=== PATIENT | female | born 1955 | race Caucasian/White ===

== ENCOUNTER → 2020-01-24 08:33 | Outpatient (CLI) | payer OTHER, SELFPAY ==
--- NOTE | ~2020-01-24 | XR_ITS ---
XR foot RT 2V DATE: 01/24/2020 08:48 INDICATION: Right foot pain TECHNIQUE: AP and lateral views COMPARISON: None FINDINGS: Moderate plantar calcaneal enthesopathy. Mild posterior calcaneal enthesopathy and mild dis guille Achilles tendon calcification. No fracture or dislocation, periosteal reaction or bone destruction. Mild joint space narrowing at th e first metatarsophalangeal joint. No erosive changes. IMPRESSION: Moderate plantar calcaneal enthesopathy Mild posterior calcaneal enthesopathy and mild distal Achilles tendon calcification Mild osteoarthritis at the first metatarsophalangeal joint Reviewed, dictated and finalized at location B. IMPRESSION: Moderate plantar calcaneal enthesopathy Mild posterior calcaneal enthesopathy and mild distal Achilles tendon calcifica tion Mild osteoarthritis at the first metatarsophalangeal joint
== END ==
PROVIDERS: PCP Family Medicine; Visit Provider Family Medicine
DX: M19.071 Primary osteoarthritis, right ankle and foot (principal); M77.31 Calcaneal spur, right foot
CPT/HCPCS: 73620

== ENCOUNTER → 2021-09-13 14:40 | Outpatient (CLI) | payer OTHER, SELFPAY ==
--- NOTE | ~2021-09-13 | MM_ITS ---
EXAMINATION: MM screening [facility] BI w ga HISTORY: Screening mammogram TECHNIQUE: Craniocaudal and mediolateral oblique 3-D tomosynthesis images were obtained and synthetic 2-D images were generated. CAD analysis was submitted and interpreted. COMPARISON: 03/20/2019, 03/14/2018 BREAST PARENCHYMAL COMPOSITION: There are scattered areas of fibroglandular density. FINDINGS: There is no evidence of suspicious mass, calcification, or architectural distortion to sugg est malignancy in either breast. There has been no suspicious interval change. IMPRESSION: 1. No mammographic evidence of malignancy. 2. Recommend routine screening mammography in one year. BI-RADS Category 1: Negative Reviewed, dictated and finalized at location A.
== END ==
PROVIDERS: PCP Family Medicine; Visit Provider Family Medicine
DX: Z12.31 Encounter for screening mammogram for malignant neoplasm of breast (principal)
CPT/HCPCS: 77063; 77067

== ENCOUNTER 2022-05-04 12:51 | Outpatient (CLI) | payer OTHER, SELFPAY ==
[2022-05-04 13:47] LABS: SARS-CoV-2 RNA PCR Positive
[2022-05-04 14:17] LABS: Influenza Control Positive
== END 2022-05-04 12:52 | disposition home or self-care (01) ==
LOC: ANHLAB 12:54
PROVIDERS: PCP Family Medicine; Visit Provider Family Medicine
DX: U07.1 COVID-19 (principal); J06.9 Acute upper respiratory infection, unspecified
CPT/HCPCS: 87804; U0003; U0005

== ENCOUNTER 2023-07-02 12:41 | Emergency (ER) | payer MEDICARE, OTHER, SELFPAY ==
--- NOTE | ~2023-07-02 | XR_ITS ---
EXAMINATION: XR chest 2V Exam Date/Time: 07/02/2023 15:10 LINING STITCHER HISTORY: cough since june Comparison: None. RESULT: Lines, tubes, and devices: None. Lungs and pleura: Subtle, hazy opacity in the right lower lung with partial opacification of the rig ht hemidiaphragm. Cardiomediastinal silhouette: Unremarkable. Other: No acute osseous or upper abdominal finding. IMPRESSION: Right lower lobe segmental consolidation concerning for pneumonia. Reviewed, dictated and finalized at location K. NG STITCHER
[2023-07-02 14:12] VITALS: BP 158/71; PULSE 105; RESP 16; TEMP 36.7; O2SAT 95
--- NOTE | 2023-07-02 15:08 | ED.GENADULT ---
HPI - General Adult General Chief complaint: Upper Respiratory Infection Stated complaint: Cough,Congestion,Headache Source: patient Mode of arrival: ambulatory Limitations: no limitations History of Present Illness HPI narrative: Patient presents for evaluation of sick symptoms since 06/20/23. Symptoms include sinus congestion, postnasal drainage, rhinorrhea, productive cough of green sputum, shortness of breath during coughing episodes, muffled hearing and pressure in both ears, and vomiting during episodes of coughing. No fever, chills, or sore throat. Her grandchild has RSV. She has been taking mucinex DM with mild improvement thereafter. She does not smoke. Related Data Home Medications Medication Instructions Recorded Confirmed calcium 600 mg-D3 800 unit-mag11 1 tablet PO DAILY 08/16/21 07/02/23 50 ke-kxdj-rqepjv-toi-s.borat tablet (Caltrate 600-D Plus Minerals) flaxseed oil 1,000 mg capsule 1,000 mg PO DAILY 08/16/21 07/02/23 krill 500 mg-omega-3 150 mg-dha 45 1 cap PO DAILY 08/16/21 07/02/23 mg-epa 75 hc-jjstexh-daqmb capsule ctiveyvu-kpf-sdpab ac 400 1 tablet PO DAILY 08/16/21 07/02/23 mcg-calcium carb 500 mg-vit K1 20 mcg tablet (Women's 50 Plus Multivitamin) Allergies Allergy/AdvReac Type Severity Reaction Status Date / Time No Known Allergies Allergy Verified 07/02/23 14:52 Review of Systems Review of Systems: CONSTITUTIONAL: Denies fever, chills, or sweats. EYES: Denies visual changes, redness, or discharge. ENT: Reports sinus congestion, postnasal drainage, rhinorrhea, pressure in the ears and muffled hearing bilaterally CARDIOVASCULAR: Denies chest pain, palpitations, or edema. RESPIRATORY: Reports productive and cough and SOB GASTROINTESTINAL:Reports vomiting during coughing episodes. Denies abdominal pain, diarrhea and nausea otherwise GENITOURINARY: Denies dysuria or hematuria. SKIN: Denies rash or itching. MUSCULOSKELETAL: Denies back pain, joint pain, or myalgia. NEUROLOGIC: Denies headache, numbness, dizziness, or weakness. PSYCHIATRIC: Denies anxiety or depression. [facility] Past Medical History Medical History (Updated 07/02/23 @ 16:21 by Rivera Ramírez, HYDRATE CONTROL TENDER, ) Hypertension Mixed hyperlipidemia Nephrolithiasis Normal colonoscopy 2013 Osteopenia Prediabetes Type 2 diabetes mellitus Type 2 diabetes mellitus without complication Vitamin D deficiency Surgical History Surgical History No pertinent past surgical history Family History Family History Father Family history of coronary artery disease Mother Family history of malignant neoplasm of breast in first degree relative Patient's mother is Social History Social History Smoking status: Never smoker Second hand tobacco smoke exposure: No Alcohol intake: never Substance use: never Substance use type: does not use Lack of Transportation: No Lack of Food: Never True Current Housing: I Have Housing Concerned About Future Housing: No Difficulty Paying Gas/Electric Bills: No Difficulty Paying for Meds: No Currently Unemployed: No Education: Bachelor's Degree Difficulty w/ Childcare or Family Care: No Living arrangements: with family Gender identity (if verbalized by the patient): Female Sexual Orientation (if Verbalized by the Patient): Straight or Heterosexual Spiritual care concerns: No Agree to blood products: Yes Exam Narrative: GENERAL: Well-appearing, well-nourished, and in no acute distress. HEAD: Normocephalic, atraumatic. EYES: PERRLA and EOMI. ENT: Nares clear, no rhinorrhea or epistaxis. Mucous membranes moist. Oropharynx without tonsillar hypertrophy exudate or other lesions. there is posterior pharyngeal erythema. Right tympanic membrane
== END 2023-07-02 16:23 | disposition home or self-care (01) ==
PROVIDERS: Emergency Provider Nurse Practitioner; PCP Family Medicine
DX: J18.9 Pneumonia, unspecified organism (principal); I10 Essential (primary) hypertension; E78.2 Mixed hyperlipidemia; E11.9 Type 2 diabetes mellitus without complications; Z79.899 Other long term (current) drug therapy; Z20.822 Contact with and (suspected) exposure to COVID-19
CPT/HCPCS: 71046; 87426; 87804; 99213; C9803; G0463

== ENCOUNTER 2023-08-02 16:25 | Outpatient (CLI) | payer MEDICARE, OTHER, SELFPAY ==
[2023-08-02 17:46] LABS: Influenza A QL RT-PCR Negative (Negative); Influenza B QL RT-PCR Negative (Negative); RSV RNA, RT-PCR Negative (Negative); SARS-CoV-2 RNA PCR Negative (Negative)
== END 2023-08-02 16:26 | disposition home or self-care (01) ==
LOC: ANHLAB 16:26
PROVIDERS: PCP Family Medicine; Visit Provider Physician Assistant Medical
DX: R05.9 Cough, unspecified (principal); R09.81 Nasal congestion; R43.0 Anosmia; R43.2 Parageusia; Z20.822 Contact with and (suspected) exposure to COVID-19
CPT/HCPCS: 87637

== ENCOUNTER 2024-01-18 06:29 | Day surgery (SDC) | payer MEDICARE, OTHER, SELFPAY ==
[2023-12-25 09:29] VITALS: BMI 28.7
[2024-01-12 08:43] VITALS: BMI 27.5
[2024-01-18 08:08] VITALS: BMI 27.5
--- NOTE | 2024-01-18 08:24 | WPDANESEPPF ---
Anes - Initial Pre Proc Eval Procedure: Operation Date: 01/18/24 09:00 Proposed Procedures p Screening Colonoscopy - Zev Whitley MD Date/Time: 01/18/24 08:24 Surgeon: Zev Whitley MD Pre Op Diagnosis: Neoplasm Screening Patient Data Age: 68 Gender: F Height: 1.57 m Weight: 68.3 kg Allergies Allergy/AdvReac Type Severity Reaction Status Date / Time No Known Allergies Allergy Verified 01/18/24 08:00 Home Medications Medication Instructions Recorded Confirmed Type calcium 600 mg-D3 800 unit-mag11 1 tablet PO DAILY 08/16/21 01/18/24 History 50 qb-dadf-njinfx-toi-s.borat tablet (Caltrate 600-D Plus Minerals) flaxseed oil 1,000 mg capsule 1,000 mg PO DAILY 08/16/21 01/18/24 History krill 500 mg-omega-3 150 mg-dha 45 1 cap PO DAILY 08/16/21 01/18/24 History mg-epa 75 ss-aqscybt-mdarw capsule xagrhmdf-ppx-qoggd ac 400 1 tablet PO DAILY 08/16/21 01/18/24 History mcg-calcium carb 500 mg-vit K1 20 mcg tablet (Women's 50 Plus Multivitamin) simvastatin 10 mg tablet 10 mg PO DAILY #90 tabs 09/19/23 01/18/24 Rx bupropion HCl 150 mg 24 hr tablet, 150 mg PO QAM #90 tabs 10/31/23 01/18/24 Rx extended release tirzepatide 2.5 mg/0.5 mL 2.5 mg (0.5 mL) subcut WEEKLY #2 mL 12/13/23 01/12/24 Rx subcutaneous pen injector (Mounjaro) sodium,potassium,mag sulfates 17.5 See Rx Instructions PO .COMPLEX 12/25/23 Rx gram-3.13 gram-1.6 gram oral soln #354 mL (Suprep Bowel Prep Kit) losartan 25 mg tablet 25 mg PO DAILY 01/12/24 01/18/24 History omeprazole 40 mg capsule,delayed 40 mg PO DAILY PRN Indigestion 01/12/24 01/18/24 History release Patient hx anesthesia problems: none Family hx anesthesia problems: none Results Review: All pre-operative results and documents have been reviewed as part of the pre-operative evaluation. [facility] Past Medical History Medical History Hypertension Mixed hyperlipidemia Nephrolithiasis Normal colonoscopy 2013 Osteopenia Prediabetes Type 2 diabetes mellitus Type 2 diabetes mellitus without complication Vitamin D deficiency Surgical History Surgical History No pertinent past surgical history Family History Family History Father Family history of coronary artery disease Mother Family history of malignant neoplasm of breast in first degree relative Patient's mother is Social History Social History Smoking status: Never smoker Second hand tobacco smoke exposure: No Alcohol intake: never Substance use: never Substance use type: does not use Lack of Transportation: No Lack of Food: Never True Current Housing: I Have Housing Concerned About Future Housing: No Difficulty Paying Gas/Electric Bills: No Difficulty Paying for Meds: No Currently Unemployed: No Education: Bachelor's Degree Difficulty w/ Childcare or Family Care: No Living arrangements: with family Gender identity (if verbalized by the patient): Female Sexual Orientation (if Verbalized by the Patient): Straight or Heterosexual Spiritual care concerns: No Agree to blood products: Yes Anes - Eval Final PreProcedure Day of Procedure 01/18/24 08:24 Patient weight: obese Heart: regular rate and rhythm Lungs: clear to auscultation Airway: Mallampati scale class II Neurological: alert and oriented Last oral intake: >/= 8 hours ASA classification: III Emergent: no Anesthetic plan: proceed Anesthesia type and monitoring: general GIVS and standard monitoring Results Review: All pre-operative results and documents have been reviewed as part of the pre-operative evaluation. Informed Consent: The patient's anesthetic plan and its attendant risks and benefits were discussed with the patient/fami
--- NOTE | 2024-01-18 08:31 | PM.HPGS ---
History of Present Illness History of Present Illness Consent: Risks, benefits, and alternatives have been discussed and questions answered. Patient agrees to proceed with procedure. Chief complaint: Neoplasm Screening Narrative: Angélica Yao is a 68 year old female presents for screening colonoscopy. Patient's current weight appetite and bowel movements are normal. She denies abdominal pain. Patient has had no bleeding. Family history noncontributory. Previous colonoscopy 10 years ago was unremarkable. Review of Systems Review of Systems: All systems reviewed & are unremarkable except as noted in HPI and below PMFSH Past Medical History Medical History Hypertension Mixed hyperlipidemia Nephrolithiasis Normal colonoscopy 2013 Osteopenia Prediabetes Type 2 diabetes mellitus Type 2 diabetes mellitus without complication Vitamin D deficiency Surgical History Surgical History No pertinent past surgical history Family History Family History Father Family history of coronary artery disease Mother Family history of malignant neoplasm of breast in first degree relative Patient's mother is Social History Social History Smoking status: Never smoker Second hand tobacco smoke exposure: No Alcohol intake: never Substance use: never Substance use type: does not use Lack of Transportation: No Lack of Food: Never True Current Housing: I Have Housing Concerned About Future Housing: No Difficulty Paying Gas/Electric Bills: No Difficulty Paying for Meds: No Currently Unemployed: No Education: Bachelor's Degree Difficulty w/ Childcare or Family Care: No Living arrangements: with family Gender identity (if verbalized by the patient): Female Sexual Orientation (if Verbalized by the Patient): Straight or Heterosexual Spiritual care concerns: No Agree to blood products: Yes Meds Home Medications and Allergies Home Medications Medication Instructions Recorded Confirmed Type calcium 600 mg-D3 800 unit-mag11 1 tablet PO DAILY 08/16/21 01/18/24 History 50 jf-dooc-wsatgn-toi-s.borat tablet (Caltrate 600-D Plus Minerals) flaxseed oil 1,000 mg capsule 1,000 mg PO DAILY 08/16/21 01/18/24 History krill 500 mg-omega-3 150 mg-dha 45 1 cap PO DAILY 08/16/21 01/18/24 History mg-epa 75 ub-btktzri-nichv capsule mnpfeadb-bio-fknbh ac 400 1 tablet PO DAILY 08/16/21 01/18/24 History mcg-calcium carb 500 mg-vit K1 20 mcg tablet (Women's 50 Plus Multivitamin) simvastatin 10 mg tablet 10 mg PO DAILY #90 tabs 09/19/23 01/18/24 Rx bupropion HCl 150 mg 24 hr tablet, 150 mg PO QAM #90 tabs 10/31/23 01/18/24 Rx extended release tirzepatide 2.5 mg/0.5 mL 2.5 mg (0.5 mL) subcut WEEKLY #2 mL 12/13/23 01/12/24 Rx subcutaneous pen injector (Mounjaro) sodium,potassium,mag sulfates 17.5 See Rx Instructions PO .COMPLEX 12/25/23 Rx gram-3.13 gram-1.6 gram oral soln #354 mL (Suprep Bowel Prep Kit) losartan 25 mg tablet 25 mg PO DAILY 01/12/24 01/18/24 History omeprazole 40 mg capsule,delayed 40 mg PO DAILY PRN Indigestion 01/12/24 01/18/24 History release Allergies Allergy/AdvReac Type Severity Reaction Status Date / Time No Known Allergies Allergy Verified 01/18/24 08:00 Exam Narrative: Physical exam reveals patient to be alert. Signs stable. HEENT exam is unremarkable. Patient is anicteric. Lungs are clear to auscultation and to percussion. Heart is without murmur or extra sounds. Abdomen bowel sounds are present soft nontender with no organomegaly. Digital external rectal exam normal. Assessment and Plan Assessment and plan (1) Screen for colon cancer: Code(s): Z12.11 - Encounter for scree
[2024-01-18] MEDS: LACTATED RINGERS 1,000 ML 150 ML IV CONT (08:35)
[2024-01-18 08:45] LABS: Glucose Point of Care 127 mg/dl (65-105)
[2024-01-18 09:15] VITALS: BP 102/70; PULSE 87; RESP 16; O2SAT 97
[2024-01-18 09:25] VITALS: BP 103/70; PULSE 83; RESP 20; O2SAT 100
[2024-01-18 09:35] VITALS: BP 118/74; PULSE 87; RESP 20; O2SAT 100
--- NOTE | 2024-01-18 09:35 | WPDANESPN ---
Anes - Prog Note Post-Op Date/Time: 01/18/24 09:35 Cardiovascular status: normal Respiratory status: normal Airway patency: baseline Mental status: baseline Post-Op hydration status: normal Pain Score (VAS): 0/10 I/O: Intake & Output 01/17/24 01/18/24 01/18/24 23:59 07:59 15:59 Intake Total 400 Balance 400 01/18/24 08:32 POC Capillary Glucose 127 H Patient Feedback: Patient satisfied with anesthetic care.
== END 2024-01-18 09:54 | disposition home or self-care (01) ==
PROVIDERS: PCP Family Medicine; Visit Provider Internal Medicine Gastroenterology
PROC: 0DJD8ZZ Inspection of Lower Intestinal Tract, Via Natural or Artificial Opening Endoscopic (ICD-10-PCS; CPT 45378; principal; 2024-01-18 09:00)
DX: Z12.11 Encounter for screening for malignant neoplasm of colon (principal); K64.8 Other hemorrhoids
CPT/HCPCS: G0121

== ENCOUNTER 2024-07-22 10:12 | Outpatient (CLI) | payer MEDICARE, OTHER, SELFPAY ==
--- NOTE | ~2024-07-22 | DEXA_ITS ---
Bone Density Report Name: DEVAN MASSEY Age: 68 Sex: Female Ethnicity: White Date of : 1955 Indication: postmenopausal; screening for osteoporosis; height loss; Referring Provider: PADMINI AGUIRRE Study: Bone densitometry was performed. Exam Date: July 22, 2024 Accession number: [id number] Bone Density: Region BMD T-score Z-score Classification AP Spine(L1-L4) 1.029 -0.2 1.7 Normal Femoral Neck (Left) 0.696 -1.4 0.2 Osteopenia Total Hip (Left) 0.901 -0.3 1.0 Normal Femoral Neck (Right) 0.666 -1.6 0.0 Osteopenia Total Hip (Right) 0.903 -0.3 1.0 Normal Total Hip Mean 0.902 -0.3 1.0 Normal World Health Organization criteria for BMD impression classify patients as: Normal (T-score at or above -1.0), Osteopenia (T-score between -1.0 and -2.5), or Osteoporosis (T-score at or below -2.5). 10-year Fracture Risk(1): Major Osteoporotic Fracture 9.2% Hip Fracture 1.1% Reported Risk Factors: [place] (), Neck BMD=0.666, BMI=30.6 (1) FRAX(R) Version 3.08. Fracture probability calculated for an untreated patient. Fracture probability may be lower if the patient has received treatment. Previous Exams: Region Exam Age BMD T-score BMD Change BMD Change Date g/cm2 vs Baseline vs Previous AP Spine (L1-L4) 07/22/2024 68 1.029 -0.2 -0.024 (-2.3%) -0.024 (-2.3%) 10/01/2015 59 1.053 0.1 Total Hip(Left) 07/22/2024 68 0.901 -0.3 -0.051 (-5.3%) -0.051 (-5.3%) 10/01/2015 59 0.952 0.1 Total Hip(Right) 07/22/2024 68 0.903 -0.3 -0.063 (-6.6%) -0.063 (-6.6%) 10/01/2015 59 0.967 0.2 *Denotes significance at 95% confidence level, LSC for AP Spine = 0.022 g/cm2, LSC for Total Hip = 0.027 g/cm2 Clinical Information Provided by Patient: Has used the following medications: Vitamin D, Calcium Patient maximum height was 62 Menopause Age: 53 Drinks caffeinated beverages Onset of menses at age 12 Impression: The patient has low bone mass, based on the Right Femoral Neck T-score. The patient has an estimated ten-year risk of hip fracture of 1.1% and an estimated ten-year risk of major fracture of 9.2%, based on the WHO FRAX algorithm. The BMD for the AP Spine (L1-L4) decreased, changing by -2.3% since the last DXA exam. The BMD for the Total Hip(Left) decreased, changing by -5.3% since the last DXA exam. The BMD for the Total Hip(Right) decreased, changing by -6.6% since the last DXA exam. Discussion: BONE DENSITY IS LOW AT ONE OR MORE SKELETAL SITES. This patient's lowest T-score is low at one or more skeletal sites. It meets the World Health Organization's (WHO) criteria for ?low bone mass? (T-score between -1.0 and -2.5). The patient's 10-year risk of fracture as calculated by FRAX is less than the threshold where pharmacological therapy is recommended by the National Osteoporosis Foundation (NOF). However, all treatment decisions require clinical judgment and consideration of individual patient factors, including patient preferences, comorbidities, previous drug use, risk factors not captured in the FRAX model (e.g., frailty, falls, vitamin D deficiency, increased bone turnover, interval significant decline in bone density) and possible under or overestimation of fracture risk by FRAX. The patient should follow a healthful lifestyle (good nutrition with adequate calcium and vitamin D, and appropriate weight-bearing exercise). Follow-Up: Consider repeating this study in 2 years to reassess this patient's status, or sooner if there is some new clinical indication. Reported by: FEDERICO on 07/22/2024 10:44:00 AM. Reviewed, dictated and finalized at location ADen SANTOS
== END 2024-07-22 10:13 | disposition home or self-care (01) ==
LOC: ANHIMG 10:14
PROVIDERS: PCP Family Medicine; Visit Provider Family Medicine
DX: Z78.0 Asymptomatic menopausal state (principal); M85.852 Other specified disorders of bone density and structure, left thigh; M85.851 Other specified disorders of bone density and structure, right thigh
CPT/HCPCS: 77080

== ENCOUNTER 2024-08-30 15:03 | Outpatient (CLI) | payer MEDICARE, OTHER, SELFPAY | END 2024-08-30 15:04 | disposition home or self-care (01) | LOC: MICIMG 15:04 | PROVIDERS: PCP Family Medicine; Visit Provider Family Medicine | DX: Z12.31 Encounter for screening mammogram for malignant neoplasm of breast (principal) | CPT/HCPCS: 77063; 77067 ==